=== PATIENT | female | born 1990 | race African-American/Black ===

== ENCOUNTER → 2019-04-29 | Emergency (ER) | payer SELFPAY ==
[~2019-04-29] VITALS: Ht 177.8 cm; Wt 71.7 kg
[~2019-04-29] MED LIST: AMOXICILLIN500 MG ORAL; ATIVAN0.5 MG ORAL; IBUPROFEN600 MG ORAL; LORazepam 0.5mg tab ORAL ONE; NKM; NORCO 5-325 TA1 EACH ORAL; PEPCID AC20 M2 PO; TYLENOL325 MG ORAL
[2019-04-29 14:23] VITALS: BP 122/81
--- NOTE | 2019-04-29 14:30 | NUR ---
ED Nurse Note: Pt ia AAOx4, vsss, with no sign of distress. Family at bedside. Patient walked into ED c/o chest pain that has been happening intermittently for the past couple of weeks.
--- NOTE | 2019-04-29 14:48 | Emergency Room Report ---
History of Present Illness General Chief Complaint: Chest Pain Source: Patient Present Illness HPI The patient presents with 2 weeks of intermittent chest pain. She describes it as pressure on occasion. She sometimes has some numbness in her left arm. The first time she burped and there was some acid and she felt that it might of been heartburn. Since that time there is been no acid reflux symptoms or increased pain with laying down. Today she felt it come on and felt numbness in her left arm and behind her neck with taking deep breaths. Her heart rate went up to 149 but then came down on its own when she read about the possibility of this being a panic attack. He smokes cannabis. She is not on control. There is no calf pain or edema. She denies fevers, chills, sore throat or upper respiratory symptoms. There is no productive cough. There is no nausea vomiting or diarrhea. She denies dysuria. She says she is a high strung person does not feel that there is increased stress in her life at this time. Younger brother has a history of SVT that needed to have ablation. Cardiac disease: None The patient reports that she feels anxious almost every other day. She got to the point of passing out in the past and was admitted for observation after syncopal episode knocking out her 2 front teeth. I did not taking medication for this. Allergies: Coded Allergies: No Known Allergies (Unverified , 07/11/16) Patient History Past Medical History: see triage record Social History: Reports: drug use - thc; Denies: smoking, alcohol use Social History Narrative apartment no central heating, deliveries Last Menstrual Period: 04/15/19 Now: No Reviewed Nursing Documentation: PMH: Agreed; PSxH: Agreed Nursing Documentation-PMH Past Medical History: No Stated History Physical Exam Vital Signs Date Time Temp Pulse Resp B/P (MAP) Pulse Ox O2 Delivery O2 Flow Rate FiO2 04/29/19 14:23 98.1 105 18 122/81 (95) 98 Room Air Sp02 EP Interpretation: reviewed, normal General Appearance: well appearing, no apparent distress, GCS 15 Head: normocephalic Eyes: bilateral eye normal inspection, bilateral eye PERRL ENT: moist mucus membranes Neck: supple Respiratory: lungs clear, normal breath sounds Cardiovascular #1: regular rate, rhythm Cardiovascular #2: 2+ radial (R) Gastrointestinal: normal inspection, normal bowel sounds, non tender, no mass, non-distended Genitourinary: no CVA tenderness Musculoskeletal: back normal, gait/station normal, normal range of motion Neurologic: alert, oriented x3, grossly normal Psychiatric: mood/affect normal Skin: no rash, warm/dry Medical Decision Making Diagnostic Impression: Primary Impression: Chest pain Qualified Codes: R07.9 - Chest pain, unspecified Additional Impressions: Panic attack Stress Reflux esophagitis ER Course Patient presents with 2 weeks of intermittent chest pain and an episode of rapid heart rate earlier today that resolved spontaneously. Differential includes pericarditis, chest wall pain, reflux, SVT, or embolus. Based on her vital signs and exam and history pulmonary embolus is extremely unlikely. Patient will be evaluated with EKG, chest x-ray and labs. At this point no treatment is indicated. If the patient starts having pain we may address how best to treated at that time. EKG normal sinus rhythm normal EKG. Chest x-ray no infiltrates normal heart size. Labs with normal white count but eosinophilia which is minimal. Normal H &H. CMP normal. Urinalysis unremarkable. Patient improved with observation. Still feels anxious. I discussed with patient treatment plan and results. She is willing to try dose of Ativan and will take a dose of Pepcid at this time. Laboratory Tests Test 04/29/19 14:55 White Blood Count 4.2 K/UL (4.8-10.8) L Red Blood Count 4.13 M/UL (4.20-5.40) L Hemoglobin 12.2 G/DL (12.0-16.0) Hematocrit 37.5 % (37.0-47.0) Mean Corpuscular Volume 91 FL (80-99) Mean Corpuscular Hemoglobin 29.5 PG (27.0-31.0) Mean Corpuscular Hemoglobin Concent 32.5 G/DL (32.0-36.0) Red Cell Distribution Width 13.2 % (11.6-14.8) Platelet Count 207 K/UL (150-450) Mean Platelet Volume 7.5 FL (6.5-10.1) Neutrophils (%) (Auto) 42.3 % (45.0-75.0) L Lymphocytes (%) (Auto) 41.6 % (20.0-45.0) Monocytes (%) (Auto) 5.4 % (1.0-10.0) Eosinophils (%) (Auto) 7.9 % (0.0-3.0) H Basophils (%) (Auto) 2.7 % (0.0-2.0) H Urine Color Pale yellow Urine Appearance Clear Urine pH 6.5 (4.5-8.0) Urine Specific [place] 1.005 (1.005-1.035) Urine Protein Negative (NEGATIVE) Urine Glucose (UA) Negative (NEGATIVE) Urine Ketones Negative (NEGATIVE) Urine Blood Negative (NEGATIVE) Urine Nitrite Negative (NEGATIVE) Urine Bilirubin Negative (NEGATIVE) Urine Urobilinogen Normal MG/DL (0.0-1.0) Urine Leukocyte Esterase 2+ (NEGATIVE) H Urine RBC 2-4 /HPF (0 - 2) H Urine WBC 0-2 /HPF (0 - 2) Urine Squamous Epithelial Cells Moderate /LPF (NONE/OCC) H Urine Bacteria Few /HPF (NONE) Urine HCG, Qualitative Negative (NEGATIVE) Sodium Level 138 MMOL/L (136-145) Potassium Level 3.8 MMOL/L (3.5-5.1) Chloride Level 103 MMOL/L (98-107) Carbon Dioxide Level 30 MMOL/L (21-32) Anion Gap 5 mmol/L (5-15) Blood Urea Nitrogen 10 mg/dL (7-18) Creatinine 0.8 MG/DL (0.55-1.30) Estimate Glomerular Filtration Rate > 60 mL/min (>60) Glucose Level 108 MG/DL (74-106) H Calcium Level 9.3 MG/DL (8.5-10.1) Total Bilirubin 1.0 MG/DL (0.2-1.0) Aspartate Amino Transferase (AST) 21 U/L (15-37) Alanine Aminotransferase (ALT) 19 U/L (12-78) Alkaline Phosphatase 47 U/L (46-116) Total Creatine Kinase 224 U/L (26-308) Troponin I 0.000 ng/mL (0.000-0.056) Pro-B-Type Natriuretic Peptide 24 pg/mL (0-125) Total Protein 7.7 G/DL (6.4-8.2) Albumin 4.1 G/DL (3.4-5.0) Globulin 3.6 g/dL Albumin/Globulin Ratio 1.1 (1.0-2.7) EKG Diagnostic Results Rate: normal Rhythm: NSR ST Segments: no acute changes Rhythm Strip Diag. Results EP Interpretation: yes Rhythm: NSR, no PVC's, no ectopy Chest X-Ray Diagnostic Results Chest X-Ray Diagnostic Results : Chest X-Ray Ordered: Yes # of Views/Limited/Complete: 1 View Indication: Chest Pain Interpretation: no consolidation, no effusion, no pneumothorax Impression: No acute disease Electronically Signed by: Electronically signed by Sung Waller MD Status: improved Disposition: HOME, SELF-CARE Condition: Improved Sung Waller MD Apr 29, 2019 14:48
--- NOTE | 2019-04-29 15:04 | NUR ---
ED Nurse Note: IV 18g AC, blood and urine sent to lab.
[2019-04-29 15:22] LABS: APPEARANCE,URINE CLEAR; BILIRUBIN, URINE NEGATIVE (NEGATIVE); COLOR,URINE PALE YELLOW; GLUCOSE, URINE (UA) NEGATIVE (NEGATIVE); KETONES,URINE NEGATIVE (NEGATIVE); LEUKOCYTE ESTERASE ,URINE 2+ (NEGATIVE); NITRITE,URINE NEGATIVE (NEGATIVE); PH,URINE 6.5 (4.5-8.0); PROTEIN,URINE NEGATIVE (NEGATIVE); UROBILINOGEN,URINE NORMAL MG/DL (0.0-1.0)
[2019-04-29 15:27] LABS: BASOPHILS % (AUTO) 2.7 % (0.0-2.0); EOSINOPHILS % (AUTO) 7.9 % (0.0-3.0); HEMATOCRIT 37.5 % (37.0-47.0); HEMOGLOBIN 12.2 G/DL (12.0-16.0); LYMPHOCYTES % (AUTO) 41.6 % (20.0-45.0); MEAN CORPUSCULAR VOLUME 91 FL (80-99); MONOCYTES % (AUTO) 5.4 % (1.0-10.0); NEUTROPHILS % (AUTO) 42.3 % (45.0-75.0); PLATELET COUNT 207 K/UL (150-450); RED BLOOD COUNT 4.13 M/UL (4.20-5.40); RED CELL DISTRIBUTION WIDTH 13.2 % (11.6-14.8); WHITE BLOOD COUNT 4.2 K/UL (4.8-10.8)
[2019-04-29 15:36] LABS: ANION GAP 5 mmol/L (5-15); BLOOD UREA NITROGEN 10 mg/dL (7-18); CALCIUM 9.3 MG/DL (8.5-10.1); CARBON DIOXIDE 30 MMOL/L (21-32); CHLORIDE 103 MMOL/L (98-107); CREATININE 0.8 MG/DL (0.55-1.30); POTASSIUM 3.8 MMOL/L (3.5-5.1); SODIUM 138 MMOL/L (136-145)
[2019-04-29 15:46] LABS: ALANINE AMINOTRANSFERASE 19 U/L (12-78); ALBUMIN 4.1 G/DL (3.4-5.0); ALBUMIN/GLOBULIN RATIO 1.1 (1.0-2.7); ALKALINE PHOSPHATASE 47 U/L (46-116); ASPARTATE AMINO TRANSFERASE 21 U/L (15-37); CREATINE KINASE 224 U/L (26-308)
--- NOTE | 2019-04-29 15:50 | Diagnostic Imaging Report ---
Indication: Chest pain Technique: One view of the chest Comparison: 07/11/2016 Findings: Lungs and pleural spaces are clear. The heart size is normal. No significant change Impression: No acute process This agrees with the preliminary interpretation provided by the emergency room physician
== END | disposition home or self-care (01) ==
LOC: EMR 15:19
DX: F41.0 Panic disorder [episodic paroxysmal anxiety] (principal); F43.0 Acute stress reaction; R07.9 Chest pain, unspecified; K21.0 Gastro-esophageal reflux disease with esophagitis; F12.10 Cannabis abuse, uncomplicated; Z82.49 Family history of ischemic heart disease and other diseases of the circulatory system
CPT/HCPCS: 36415; 71045; 80053; 81003; 81025; 82550; 83880; 84443; 84484; 85025; 93005; 99283